=== PATIENT | male | born 1975 | race Caucasian/White ===

== ENCOUNTER 2023-07-14 20:57 | Emergency (ER) | payer OTHER | END 2023-07-14 21:21 | disposition home or self-care (01) | LOC: ERS 20:57 | DX: S06.0X0A Concussion without loss of consciousness, initial encounter (principal); V49.9XXA Car occupant (driver) (passenger) injured in unspecified traffic accident, initial encounter | CPT/HCPCS: 99283 ==

== ENCOUNTER 2024-08-02 07:17 | Outpatient (CLI) | payer OTHER | END 2024-08-02 07:18 | disposition home or self-care (01) | LOC: SCSRAD 07:17 | PROVIDERS: ATTEND Physician Assistant | DX: M79.89 Other specified soft tissue disorders (principal) ==